=== PATIENT | female | born 1960 | race American Indian/Alaskan Native ===

== ENCOUNTER 2017-01-30 06:07 | Inpatient (IN) | payer MEDICARE ==
[2017-01-30 06:19] VITALS: BMI 27.1
--- NOTE | 2017-01-30 06:23 | CP.SDSHP ---
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 Pt NPO status was confirmed. All Pre-op testing and clearance was in the chart. Pt has exhausted all conservative treatment at this time and is opting for surgical intervention. Pt was explained procedure and post-operative course. All pt's questions were answered to satisfaction. No guarantees were made. Pt understands all risks, benefits and complications of procedure. Pt will follow-up with Dr. Romero Pt. Evaluated Today:Candidate for Anesthesia & Procedure: Yes - Date & Time Date: 01/30/17 Short Stay Discharge - Short Stay Discharge Admitting Diagnosis/Reason for Visit: TALONAVICULAR ARTHRODESIS LT FOOT Disposition: TRANS TO OBS Referrals: Krzysztof Mendes MD [Primary Care Provider] - Follow-up: Follow up with Dr. Romero at his office as outpatient Instructions: RICE Therapy (GEN), Acetaminophen/Codeine (By mouth), Cephalexin (By mouth) Additional Instructions (Diet, Activity): Non-weightbearing to Left foot Progress Note/Discharge Note with Instructions: Patient was evaluated post operatively and the patient will be admitted for 24 observational watch. Patient will be seen by Dr. Martín Romero DPM tomorrow morning.
--- NOTE | 2017-01-30 06:24 | CP.PCM.PN ---
Subjective - Date & Time of Evaluation Date of Evaluation: 01/30/17 Time of Evaluation: 06:00 - Subjective Subjective: 56 year old female patient with PMHx of DM and HTN was seen at bedside SDS this morning for scheduled surgery of Left foot Talonavicular joint arthrodesis with Dr. Martín Romero DPM. Patient states that she had pain to medial arch of the bilateral feet for more than 5 years, Left more than Right. Patient states that she does not remember experiencing any trauma to bilateral feet that might have caused the pain. She states that she can only walk very slow because of the pain which gets worse as she walks. Patient states that she has tried conservational treatments including orthotics and injections and now wishes for surgical intervention. Patient confirms NPO status since midnight yesterday and agrees with the surgical plan for fusion the TN joint of Left foot today with Dr. Romero Objective - Vital Signs/Intake and Output Vital Signs (last 24 hours): Temp Pulse Resp BP Pulse Ox 98.4 F 85 18 119/75 01/20/17 13:56 01/20/17 13:56 01/20/17 13:56 01/20/17 13:56 - Constitutional Appears: Well, Non-toxic, No Acute Distress - Extremities Exam Additional comments: Bilateral lower extremities exam DERM: No open wound is noted. No erythema is noted to bilateral feet. No sign of acute infection is noted. VASC: Palpable DP and PT noted bilaterally 1/4, MANAGER CCU less than 3 seconds noted to all digits bilaterally. NEURO: Protective sensation intact ORTHO including biomechanics exam: Biomechanics evaluation for JulianToño Vera S: 56 year old female patient presents with painful Left mid foot mostly at the level of Talonavicular joint and ankle for more than 5 years. Patient have tried conservative treatments including orthotic inserts which have failed to alleviate the persisting pain to left foot and ankle. The pain to left ankle is now worse than it has been in the past, limiting her walking ability to no more than 5 minutes. O: Pain on palpation to mid foot is noted with pain exacerbated upon weightbearing to Left foot. Limited ROM to Left ankle is noted with less than 15' in DF, accompanied by slight pain. Arch collapse is noted bilaterally upon weightbearing. RCSP 8 degrees everted to Left, 8 degrees to Right. No structural or functional Limb length discrepancy is noted upon examination. STJ ROM is adaquate with MPJ inverted to the rearfoot. Anterior cavus foot type is not present to Left foot. Hypermobile 1st ray is noted to Left foot. Gait evaluation reveals apropulsive gait with weak plantarflexion before swing phase of gait cycle. Excessive pronation is noted throughout midstance and propulsion, with the knees flexed throughout the gait cycles. Increased angle of gait from the normal value of 10' as well as increased base of gait. Enhanced arch collapse on forefoot loading is noted; Left more than right. Slight antalgic gait with shortened stance phase is noted to Left lower extremity. A: Painful Left foot TN joint arthritis is present. Functional pes planus without pain is also present to Left foot with arch collapse upon weightbearing.~ P: Possible conservative measures were discussed with the patient including ankle brace, orthotics and injections, which according to the patient, have failed to provide adequate pain relief to Left foot. Patient is present today for Surgical intervention for Left talonavicular joint fusion to eliminate pain upon ROM secondary to arthritis by Dr. Romero - Neurological Exam Neurological Exam: Alert, Awake, Oriented x3 - Psychiatric Exam Psychiatric exam: Normal Affect, Normal Mood - Skin Skin Exam: Normal Color Assessment and Plan - Assessment and Plan (Free Text) Assessment: 56 year old female patient presents with arthritis to Left Talonavicular joint Plan: Pt was seen and examined in SDS Pt NPO status was confirmed All Pre-op testing and clearance was in the chart Pt has exhausted all conservative treatment at this time and is opting for surgical intervention Pt was explained procedure and post-operative course All pt's questions were answered to satisfaction No guarantees were made Pt understands all risks, benefits and complications of procedure Pt will follow-up with Dr. Romero
[2017-01-30] MEDS ORDERED: ceFAZolin 1 GM in Sodium Chloride 0.9% 100 ML IVPB ONE (07:14)
[2017-01-30] MEDS ORDERED: Lactated Ringer's 1,000 ML IV ONE ×2 (07:15→10:02)
[2017-01-30] MEDS ORDERED: Bupivacaine 0.5% Inj(30mL) ONE (07:33)
[2017-01-30] MEDS ORDERED: Lidocaine 1% Inj (20ml) ONE (07:33)
[2017-01-30] MEDS ORDERED: ePHEDrine 50 mg/ml Inj ONE (07:46)
[2017-01-30] MEDS ORDERED: Propofol 10 mg/ml Inj (20 ML) ONE (07:46)
[2017-01-30] MEDS ORDERED: Midazolam 2 MG/2 ML VIAL ONE (07:46)
[2017-01-30] MEDS ORDERED: Rocuronium 10 mg/ml (5 ml) ONE (07:47)
[2017-01-30] MEDS ORDERED: Succinylcholine 200 mg/10 ml Inj IV ONE (07:47)
[2017-01-30] MEDS ORDERED: Neostigmine Methylsulfate 3mg/3ml Syringe IV ONE (07:48)
[2017-01-30] MEDS ORDERED: Phenylephrine 10 mg/ml Inj ONE (07:48)
[2017-01-30] MEDS ORDERED: Dexamethasone 4 mg/1 ml ONE (11:26)
[2017-01-30] MEDS ORDERED: Lactated Ringer's 1,000 ML IV SCH (12:00)
--- NOTE | 2017-01-30 12:07 | PCM.SURG1 ---
Surgeon's Initial Post Op Note - Surgeon's Notes Surgeon: Dr. Romero Product Grader: Dr. Haro Type of Anesthesia: General Endo, Local Anesthesia Administered By: Dr. Nayak Pre-Operative Diagnosis: Left foot painful osteoarthritis of Talonavicular joint with painful skin lesion Operative Findings: Materials: * 2-0, 3-0, 4-0 Vicryl. * synthes 4.0 x 30mm cannulated screw. * BME 18mm colt x2 Post-Operative Diagnosis: same Operation Performed: Left foot TNJ arthrodesis and excisional removel of skin lesion Specimen/Specimens Removed: None Estimated Blood Loss: EBL {In ML}: 20 Blood Products Given: N/A Drains Used: No Drains Post-Op Condition: Good Date of Surgery/Procedure: 01/30/17 Time of Surgery/Procedure: 08:00
[2017-01-30] MEDS ORDERED: Oxycodone/Acetaminophen 5/325 mg Tab PO PRN (12:10)
[2017-01-30] MEDS ORDERED: HYDROmorphone 0.5 mg/0.5 ml ISec IVP PRN (12:28)
[2017-01-30] MEDS ORDERED: Labetalol 5mg/ml (4ml) IVP PRN (12:30)
[2017-01-30] MEDS ORDERED: Labetalol 5 mg/ml Inj 20ML IVP ONE (12:40)
--- NOTE | 2017-01-30 12:48 | RAD ---
PROCEDURE: Left Foot Radiographs. HISTORY: left foot surgery COMPARISON: None. FINDINGS: BONES: Status post surgical fixation at talonavicular articulation. Surgical hardware appears intact. No acute fracture. Plantar calcaneal spur noted. Likely status post osteotomy distal aspect 5th proximal phalanx. This is unchanged from prior radiograph. JOINTS: Normal. SOFT TISSUES: Normal. OTHER FINDINGS: None. IMPRESSION: Surgical fixation at talonavicular articulation. Old osteotomy 5th proximal phalanx.
--- NOTE | 2017-01-30 14:43 | OP ---
PROCEDURE DATE: 01/30/2017 SURGEON: Martín Romero DPM BRAND STRATEGIST: John Haro DPM, PGY-3 CUFFING MACHINE OPERATOR: Dr. Shashi MD PREOPERATIVE DIAGNOSES: 1. Left Foot - Painful osteoarthritis of the talonavicular joint. 2. Left Foot - Painful skin lesion of unknown etiology. POSTOPERATIVE DIAGNOSES: 1. Left Foot - Painful osteoarthritis of the talonavicular joint. 2. Left Foot - Painful skin lesion of unknown etiology. NAME OF PROCEDURES: 1. Left Foot - Talonavicular joint arthrodesis. 2. Left Foot - Excision of soft tissue mass of unknown etiology. INDICATIONS: This is a 56-year-old female with the aforementioned diagnoses. The patient at this time has exhausted all of her conservative treatment options and she now opts and requests for surgical intervention. The patient signed the consent form after careful explanation of all the risks, benefits, complications, and alternatives to the surgical procedure. There were no guarantees that were made, given, nor implied. PREPARATION: The patient was brought into the operating room, placed on the operating table in a supine position. A well-padded pneumatic ankle tourniquet was placed on the patient's left ankle in the supramalleolar position. After induction of general anesthesia, the left foot and ankle were then prepped and draped in the usual sterile manner. A timeout was performed. An Esmarch bandage was utilized to exsanguinate the left foot and ankle. The pneumatic ankle tourniquet was then inflated to 250 mmHg and then the procedure began. PROCEDURE #1: Attention directed to the dorsal medial aspect of the patient's left foot, where an approximately 5 cm curvilinear incision was made overlying the medial aspect of the talonavicular joint. The incision extended from approximately the tip of the medial malleolus to the navicular-medial cuneiform joint. The incision was deepened through the subcutaneous tissues utilizing a combination of sharp and blunt dissection. Care was taken to identify and retract all vital neurovascular structures and cauterize all bleeders as necessary, including, but not limited to, the great saphenous vein and branches of the peroneal nerve. The incision was deepened down to the level of the talonavicular joint capsule, which once encountered, a fresh #15 blade was utilized to make a linear capsulotomy in parallel with the skin incision, overlying the medial aspect of the talonavicular joint. The periosteal and capsular structures were then carefully dissected free from their osseous attachments from the head of the talus and the base of the navicular. Next, in order to gain adequate exposure to the articular surfaces of the talonavicular joint, a GenerationOneermann distractor with two 0.062 inch K-wires was utilized to spread open and distract the talonavicular joint. After that was accomplished, a small laminar subway guard without sharp teeth was inserted into the talonavicular joint space as well and utilized to further distract the joint. Next, with the use of curettes and curved osteotomes, the articular surfaces and subchondral bone of the head of the talus and the base/posterior aspect of the navicular were resected in their entirety. All articular surfaces of the talonavicular joint were resected and removed from the surgical field. Next, the surgical site was then irrigated with a copious amount of normal sterile saline solution and the surgical field was now inspected and any remaining articular cartilage was resected as necessary. Next, utilizing a 1.5 mm drill bit, the subchondral plate of the head of the talus and the posterior aspect of the navicular were subchondrally drilled. Multiple perforations of the subchondral plate occurred on both the head of the talus and the posterior aspect of the navicular. After that was completed, the talonavicular joint was again irrigated with a copious amount of normal sterile saline. Next, utilizing a K-wire from the Synthes 4.0 cannulated cancellous screw set, the talonavicular joint was temporarily fixated. While fixating the talonavicular joint, special attention was paid to hold the rearfoot in neither varus nor valgus and to hold the forefoot in a neutral position. After the talonavicular joint was temporarily fixated, adequate positioning of the talonavicular joint surfaces was then confirmed with the use of intraoperative fluoroscopy. Next, an additional K-wire from the aforementioned screw set was now inserted further lateral and still parallel to the first K-wire. Again, temporary fixation was confirmed with the use of intraoperative fluoroscopy and adjusted as deemed necessary in order to gain adequate bony apposition. Next, following standard AO principles and techniques, a Synthes 4.0 mm x 30 mm cannulated cancellous screw was inserted from anterior to posterior across the resected joint surface with excellent compression noted. The first K-wire was then removed and set aside. Next, our attention was now directed to our more lateral K-wire where a Synthes 4.0 mm x 42 mm cannulated cancellous screw was then inserted again. It is noted that during insertion of the lateral most screw across the talonavicular joint, the screw head became stripped and the screw could no longer be advanced nor withdrawn with the use of a screwdriver. Next, the Synthes hardware removal set was now brought into the operative field and the 42 mm cannulated screw was successfully extracted without any breaking or stripping of the screw noted with a reverse cutting screw extractor. Next, the decision was made to now replace the 42 mm screw with a staple. Next, utilizing the BME staple measuring device, two 18 mm BME colt were appropriately applied, while following standard BME staple insertion protocol, successfully across the talonavicular joint. One staple was applied across the medial aspect of the joint and a second staple was applied across the dorsal aspect of the joint. It is of note that prior to staple application on the medial side of the joint, a sagittal bone saw was brought into the operative field and the hypertrophied portion of the navicular tuberosity was resected and passed from the operative field in order to allow for more adequate positioning of the staple and to ensure that it would be flush to bone. Next, after all hardware had been inserted and positioning had been confirmed with the use of intraoperative fluoroscopy, the surgical site was irrigated with a copious amount of normal sterile saline solution. The periosteal and capsular structures were then reapproximated with #2-0 Vicryl suture. The subcutaneous tissues were reapproximated with #3-0 Vicryl suture. The subcuticular tissue was reapproximated with 4-0 Vicryl suture and then the skin was reapproximated with #3-0 nylon suture in an interrupted horizontal mattress fashion. PROCEDURE #2. Next, our attention now directed to the plantar aspect of the patient's left foot, where an approximately 1 cm x 1 cm hard palpable lesion was noted at approximately the mid foot level of the patient's plantar foot. Next, utilizing a #15 blade and pickups, an elliptical incision was now performed surrounding the lesion of unknown etiology. The elliptical incision was approximately 3 cm in length and 1 cm in diameter. After the lesion was successfully excised, it was then passed off the operative field and sent as a pathologic specimen. Next, the plantar surgical site was now irrigated with a copious amount of normal sterile saline solution. The surgical site was then inspected for any residual aspects of the lesion and none were noted. Next, utilizing #3-0 nylon suture and in a simple interrupted fashion, the skin on the plantar aspect of the foot was now reapproximated. Next, the patient received a postoperative injection consisting of 20 mL of 0.5 % Marcaine plain in the form of local field block infiltration to the surgical areas. The patient further received an injection of 1 mL of Decadron, again to all surgical areas. Next, the foot was then cleansed and dried and Xeroform was then applied across the surgical sites. The surgical sites were now dressed with dry sterile dressings. The pneumatic ankle tourniquet was deflated and removed and the foot then continued to be dressed with Coban and an additional layer of dry sterile dressings, followed by a final layer of Coban. POSTOPERATIVE CONDITION: The patient tolerated the anesthesia and the procedure well and was escorted to the recovery room with her vital signs stable and neurovascular status intact to the left foot as noted by good cutaneous hyperemia to all 5 digits of the left foot. The patient will be nonweightbearing to the left lower extremity with the aid of a standard walker. The patient will be admitted to the hospital for 23-hour observations and will likely be discharged tomorrow. Upon discharge, the patient will follow up with Dr. Romero in his office next week. John Haro DPM Martín Romero DPM cc: [id number] TT: 01/30/2017 14:42:29 en MTDD
--- NOTE | 2017-01-30 14:49 | RAD ---
PROCEDURE: Intraoperative fluoroscopy HISTORY: LEFT FOOT COMPARISON: Not of a TECHNIQUE: Intraoperative fluoroscopy was provided. Total time of fluoroscopy is 33.1 seconds. FINDINGS: Thirteen fluoroscopic spot films are submitted demonstrating insertion of hardware fixing the anterior talus and navicular. Films are on file for review. IMPRESSION: Fluoroscopy provided.
[2017-01-30] MEDS ORDERED: Dextrose 50% SYRINGE Inj (50 ml) IV PRN (16:42)
[2017-01-30] MEDS ORDERED: Glucagon Recombinant 1 mg Inj IM PRN (16:42)
[2017-01-30] MEDS ORDERED: Pneumococcal 23-Valent Vaccine IM ONE (16:46)
--- NOTE | 2017-01-30 16:47 | CP.PCM.HP ---
History of Present Illness - History of Present Illness History of Present Illness: 56 year old female with a history of DM II and HTN. Status post Left foot TNJ arthrodesis and excisional removal of skin lesion. Post-Op Day#0. Complains of mild pain and surgical site and mild headache. No chest pain shortness of breath , palpitations, cough, sputum. No changes in vision. No new focal deficits. Afebrile. Present on Admission - Present on Admission Any Indicators Present on Admission: No Review of Systems - Review of Systems Review of Systems: As per HPI. Past Patient History - Past Medical History & Family History Past Medical History?: Yes - Past Social History Smoking Status: Heavy Smoker > 10 Cigarettes Daily - CARDIAC Hx Cardiac Disorders: Yes Hx Hypercholesterolemia: Yes Hx Hypertension: Yes - PULMONARY Hx Respiratory Disorders: Yes Hx Asthma: Yes - NEUROLOGICAL Hx Neurological Disorder: No - HEENT Hx HEENT Problems: No - RENAL Hx Chronic Kidney Disease: No - ENDOCRINE/METABOLIC Hx Endocrine Disorders: Yes Hx Diabetes Mellitus Type 1: Yes Hx Diabetes Mellitus Type 2: Yes Other/Comment: thyroid nodulesGOITER - HEMATOLOGICAL/ONCOLOGICAL Hx Blood Disorders: No Hx Blood Transfusions: No - INTEGUMENTARY Hx Dermatological Problems: No - MUSCULOSKELETAL/RHEUMATOLOGICAL Hx Musculoskeletal Disorders: Yes Hx Arthritis: Yes (KNEES) Hx Falls: No - GASTROINTESTINAL Hx Gastrointestinal Disorders: No - GENITOURINARY/GYNECOLOGICAL Hx Genitourinary Disorders: No - PSYCHIATRIC Hx Psychophysiologic Disorder: No - SURGICAL HISTORY Hx Surgeries: Yes Hx Hysterectomy: Yes (PARTIAL) Hx Musculoskeletal Surgery: Yes (RIGHT CARPAL TUNNEL RELEASE 09/20/14 & STEROID INJ. RIGHT THUMB&LONG FINGER) Hx Orthopedic Surgery: Yes (R shoulder rotator cuff, R foot sx) Other/Comment: thyroid bx; LEFT BREAST BX.; - ANESTHESIA Hx Anesthesia: Yes Hx Anesthesia Reactions: No Hx Malignant Hyperthermia: No Has any member of the family had a problem w/ anesthesia?: No Meds Allergies/Adverse Reactions: Allergies Allergy/AdvReac Type Severity Reaction Status Date / Time No Known Allergies Allergy Verified 01/30/17 06:19 Physical Exam - Head Exam Head Exam: ATRAUMATIC, NORMOCEPHALIC - Eye Exam Eye Exam: Normal appearance - ENT Exam ENT Exam: Mucous Membranes Dry - Respiratory Exam Respiratory Exam: NORMAL BREATHING PATTERN. absent: Rales, Rhonchi, Wheezes - Cardiovascular Exam Cardiovascular Exam: REGULAR RHYTHM, +S1, +S2 - GI/Abdominal Exam GI & Abdominal Exam: Soft. absent: Distended, Tenderness - Extremities Exam Extremities exam: Negative for: pedal edema Additional comments: Left LE CDI Ice pack on foot - Neurological Exam Neurological exam: Alert, CN II-XII Intact, Oriented x3 Results - Vital Signs Recent Vital Signs: Last Vital Signs Temp 98.7 F 01/30/17 15:59 Pulse 108 H 01/30/17 15:59 Resp 20 01/30/17 15:59 BP 158/75 H 01/30/17 15:59 Pulse Ox 96 01/30/17 15:59 - Labs Labs: Laboratory Results - last 24 hr 01/30/17 01/30/17 06:46 12:07 POC Glucose (mg/dL) 191 H 167 H Assessment & Plan - Assessment and Plan (Free Text) Assessment: 56 year old female with a history of HTN and DM II. Status post Left foot TNJ arthrodesis and excisional removal of skin lesion. Plan: Home medications verified via [facility], [place], [place] 1. Left foot TNJ arthrodesis and excisional removal of skin lesion POD#0 a. Podiatry on board b. Management of pain 2. HTN a. Lisinopril 10mg PO Daily 3. DM II, uncontrolled, Insulin dependent a. AARON espino AccuCheckjil torres. Hypoglycemia protocol 4. DVT Px Lovenox 40mg SC
[2017-01-30] MEDS: Insulin Regular 100 units/ml SC SCH ×2 (18:06→22:02)
[2017-01-30] MEDS: Enoxaparin 40 mg Syringe SC SCH (18:10)
[2017-01-30] MEDS: Oxycodone/Acetaminophen 5/325 mg Tab PO PRN (20:14)
[2017-01-31] MEDS: Insulin Regular 100 units/ml SC SCH ×4 (07:08→22:28)
[2017-01-31] MEDS: Enoxaparin 40 mg Syringe SC SCH (08:51)
[2017-01-31] MEDS: Oxycodone/Acetaminophen 5/325 mg Tab PO PRN ×3 (08:52→23:55)
--- NOTE | 2017-01-31 09:27 | CP.PCM.PN ---
Subjective - Date & Time of Evaluation Date of Evaluation: 01/31/17 Time of Evaluation: 09:00 - Subjective Subjective: 56 year old female patient with PMHx of DM and HTN, is POD#1 for left foot Talo- navicular joint arthrodesis. Pt was resting comfortably upon arrival. Evaluatd with attending, Dr. Martín Romero DPM present. Pt reports ost-operative pain is well controlled with pain medicines and reports no pain or breakthrough pain at this time. Pt is tolerating diet, and voiding freely. Pt denies any acute overnight events, denies recent n/v/f/c/cp/sob. Objective - Vital Signs/Intake and Output Vital Signs (last 24 hours): Temp Pulse Resp BP Pulse Ox 98.5 F 101 H 20 166/80 H 95 01/31/17 08:44 01/31/17 08:48 01/31/17 08:44 01/31/17 08:48 01/31/17 08:44 - Medications Medications: Current Medications Acetaminophen (Tylenol 325mg Tab) 650 mg PO Q4 PRN PRN Reason: Pain, Mild (1-3) Last Admin: 01/30/17 16:37 Dose: 650 mg Aspirin (Aspirin Chewable) 81 mg PO DAILY [facility] Last Admin: 01/31/17 08:47 Dose: 81 mg Dextrose (Glutose 15) 0 gm PO ONCE PRN; Protocol PRN Reason: Hypoglycemia Protocol Dextrose (Dextrose 50% Inj) 0 ml IV STAT PRN; Protocol PRN Reason: Hyglycemia Protocol Enoxaparin Sodium (Lovenox) 40 mg SC DAILY [facility] PRN Reason: Protocol Last Admin: 01/31/17 08:51 Dose: 40 mg Glucagon (Glucagen Diagnostic Kit) 0 mg IM STAT PRN; Protocol PRN Reason: Hypoglycemia Protocol Insulin Human Regular (Humulin R) 0 units SC ACCU-CHECK AD PRN Reason: Protocol Last Admin: 01/31/17 07:08 Dose: Not Given Lisinopril (Zestril) 10 mg PO DAILY [facility] Last Admin: 01/31/17 08:48 Dose: 10 mg Oxycodone/Acetaminophen (Percocet 5/325 Mg Tab) 1 tab PO Q4 PRN PRN Reason: Pain, moderate (4-7) Stop: 02/02/17 12:11 Last Admin: 01/31/17 08:52 Dose: 1 tab Oxycodone/Acetaminophen (Percocet 5/325 Mg Tab) 2 tab PO Q4 PRN PRN Reason: Pain, severe (8-10) Stop: 02/02/17 12:11 Last Admin: 01/30/17 20:14 Dose: 2 tab - Constitutional Appears: Well, Non-toxic, No Acute Distress - Extremities Exam Additional comments: Left lower extremity focused. Dressings clean, dry, and intact, absent strikethrough. Neuro-vascular status intact to level of digits. Pt able to flex and extend at knee joint freely. - Neurological Exam Neurological Exam: Alert, Awake, Oriented x3 - Psychiatric Exam Psychiatric exam: Normal Affect, Normal Mood Assessment and Plan - Assessment and Plan (Free Text) Assessment: 56 year old female is 1 day s/p left foot talo-navicular arthrodesis. Plan: Pt evaluated and treated with attending, Dr. Romero present. Chart, labs, and vitals reviewed. -Pt to start physical therapy, discussed with physical therapist pt's limited ability to complete physical therapy goals in a timely manner. Due to patient's living alone and, need for additional physical therapy, TCU is recommended for patient. -Patient to remain non-weightbearing to left lower extremity. PT to continue to work with patient to improve mobility. -Pt to started on post-operative 7 day prophylactic course of Keflex 500 TID. Podiatry will continue to follow patient while inhouse.
--- NOTE | 2017-01-31 12:37 | CP.PCM.PN ---
Subjective - Date & Time of Evaluation Date of Evaluation: 01/31/17 Time of Evaluation: 08:40 - Subjective Subjective: POD#1 Improved ambulation efforts, though remains limited. Pain controlled on PRN analgesia. Tolerating PO intake. Afebrile. No nausea, vomiting, diarrhea. No shortness of breath, chest pain, palpitations. Objective - Vital Signs/Intake and Output Vital Signs (last 24 hours): Temp Pulse Resp BP Pulse Ox 98.5 F 101 H 20 166/80 H 95 01/31/17 08:44 01/31/17 08:48 01/31/17 08:44 01/31/17 08:48 01/31/17 08:44 - Medications Medications: Current Medications Acetaminophen (Tylenol 325mg Tab) 650 mg PO Q4 PRN PRN Reason: Pain, Mild (1-3) Last Admin: 01/30/17 16:37 Dose: 650 mg Aspirin (Aspirin Chewable) 81 mg PO DAILY ON LICENSE OF [facility] Last Admin: 01/31/17 08:47 Dose: 81 mg Dextrose (Glutose 15) 0 gm PO ONCE PRN; Protocol PRN Reason: Hypoglycemia Protocol Dextrose (Dextrose 50% Inj) 0 ml IV STAT PRN; Protocol PRN Reason: Hyglycemia Protocol Enoxaparin Sodium (Lovenox) 40 mg SC DAILY ON LICENSE OF [facility] PRN Reason: Protocol Last Admin: 01/31/17 08:51 Dose: 40 mg Glucagon (Glucagen Diagnostic Kit) 0 mg IM STAT PRN; Protocol PRN Reason: Hypoglycemia Protocol Insulin Human Regular (Humulin R) 0 units SC ACCU-CHECK ON LICENSE OF [facility] PRN Reason: Protocol Last Admin: 01/31/17 12:02 Dose: 3 units Insulin Lispro Protam/Lispro Human (Humalog Mix 75/25) 15 units SC BID ON LICENSE OF [facility] Lisinopril (Zestril) 10 mg PO DAILY ON LICENSE OF [facility] Last Admin: 01/31/17 08:48 Dose: 10 mg Oxycodone/Acetaminophen (Percocet 5/325 Mg Tab) 1 tab PO Q4 PRN PRN Reason: Pain, moderate (4-7) Stop: 02/02/17 12:11 Oxycodone/Acetaminophen (Percocet 5/325 Mg Tab) 2 tab PO Q4 PRN PRN Reason: Pain, severe (8-10) Stop: 02/02/17 12:11 Last Admin: 01/31/17 08:52 Dose: 2 tab - Head Exam Head Exam: ATRAUMATIC, NORMOCEPHALIC - Eye Exam Eye Exam: EOMI, Normal appearance - Respiratory Exam Respiratory Exam: absent: Rales, Rhonchi, Wheezes - Cardiovascular Exam Cardiovascular Exam: REGULAR RHYTHM, +S1, +S2 - GI/Abdominal Exam GI & Abdominal Exam: Soft. absent: Tenderness - Extremities Exam Additional comments: Right LE CDI Motorsensorium grossly WNL - Neurological Exam Neurological Exam: Alert, Awake Assessment and Plan - Assessment and Plan (Free Text) Plan: 1. Left foot TNJ arthrodesis and excisional removal of skin lesion POD#1 a. Podiatry on board b. Management of pain c. TCU recommended by PT d. Continue PT 2. HTN a. Lisinopril 10mg PO Daily 3. DM II, uncontrolled, Insulin dependent a. AARON espino AccuCheckjil c. Hypoglycemia protocol d. Olinda Insulin added 75/25 15u BID 4. DVT Px Lovenox 40mg SC
[2017-01-31] MEDS: Insulin Lispro Mix 75/25 100 units/ml (HumaLog) 10ml SC SCH (16:30)
--- NOTE | 2017-01-31 23:45 | CP.PCM.PN ---
Subjective - Date & Time of Evaluation Date of Evaluation: 01/31/17 Time of Evaluation: 09:00 - Subjective Subjective: Pt.seen s/p t-n fusion left . Difficulty wiyh NWB staus and PT states goals not met for safely discharging .Pt lives alone with no help . TCU placement recommended. Objective - Vital Signs/Intake and Output Vital Signs (last 24 hours): Temp Pulse Resp BP Pulse Ox 98.2 F 90 20 116/73 96 01/31/17 20:10 01/31/17 20:10 01/31/17 20:10 01/31/17 20:10 01/31/17 20:10 - Medications Medications: Current Medications Acetaminophen (Tylenol 325mg Tab) 650 mg PO Q4 PRN PRN Reason: Pain, Mild (1-3) Last Admin: 01/30/17 16:37 Dose: 650 mg Aspirin (Aspirin Chewable) 81 mg PO DAILY [facility] Last Admin: 01/31/17 08:47 Dose: 81 mg Cephalexin Monohydrate (Keflex) 500 mg PO TID [facility] Stop: 02/07/17 17:01 Last Admin: 01/31/17 16:29 Dose: 500 mg Dextrose (Glutose 15) 0 gm PO ONCE PRN; Protocol PRN Reason: Hypoglycemia Protocol Dextrose (Dextrose 50% Inj) 0 ml IV STAT PRN; Protocol PRN Reason: Hyglycemia Protocol Enoxaparin Sodium (Lovenox) 40 mg SC DAILY [facility] PRN Reason: Protocol Last Admin: 01/31/17 08:51 Dose: 40 mg Glucagon (Glucagen Diagnostic Kit) 0 mg IM STAT PRN; Protocol PRN Reason: Hypoglycemia Protocol Insulin Human Regular (Humulin R) 0 units SC ACCU-CHECK [facility] PRN Reason: Protocol Last Admin: 01/31/17 22:28 Dose: Not Given Insulin Lispro Protam/Lispro Human (Humalog Mix 75/25) 15 units SC BID [facility] Last Admin: 01/31/17 16:30 Dose: 15 units Lisinopril (Zestril) 10 mg PO DAILY [facility] Last Admin: 01/31/17 08:48 Dose: 10 mg Oxycodone/Acetaminophen (Percocet 5/325 Mg Tab) 1 tab PO Q4 PRN PRN Reason: Pain, moderate (4-7) Stop: 03/20/17 12:11 Oxycodone/Acetaminophen (Percocet 5/325 Mg Tab) 2 tab PO Q4 PRN PRN Reason: Pain, severe (8-10) Stop: 02/02/17 12:11 Last Admin: 01/31/17 16:13 Dose: 2 tab
[2017-02-01] MEDS: Insulin Regular 100 units/ml SC SCH ×4 (07:09→23:00)
[2017-02-01] MEDS: Oxycodone/Acetaminophen 5/325 mg Tab PO PRN ×2 (08:10→20:20)
[2017-02-01] MEDS: Enoxaparin 40 mg Syringe SC SCH (08:12)
[2017-02-01] MEDS: Insulin Lispro Mix 75/25 100 units/ml (HumaLog) 10ml SC SCH ×3 (08:13→16:01)
--- NOTE | 2017-02-01 08:41 | CP.PCM.PN ---
Subjective - Date & Time of Evaluation Date of Evaluation: 02/01/17 Time of Evaluation: 07:45 - Subjective Subjective: POD #2 - PT was seen resting in bed with left foot elevated about to eat breakfast. She states she is able to transfer to the chair. Tolerating PO intake. Denies N/ V/D. No SOB, chest pain palpitations. -As per PT will need to transfer to TCU Objective - Vital Signs/Intake and Output Vital Signs (last 24 hours): Temp Pulse Resp BP Pulse Ox 99.0 F 102 H 20 95/54 L 98 02/01/17 08:17 02/01/17 08:17 02/01/17 08:17 02/01/17 08:17 02/01/17 08:17 - Medications Medications: Current Medications Acetaminophen (Tylenol 325mg Tab) 650 mg PO Q4 PRN PRN Reason: Pain, Mild (1-3) Last Admin: 01/30/17 16:37 Dose: 650 mg Aspirin (Aspirin Chewable) 81 mg PO DAILY [facility] Last Admin: 02/01/17 08:11 Dose: 81 mg Cephalexin Monohydrate (Keflex) 500 mg PO TID [facility] Stop: 02/07/17 17:01 Last Admin: 02/01/17 08:11 Dose: 500 mg Dextrose (Glutose 15) 0 gm PO ONCE PRN; Protocol PRN Reason: Hypoglycemia Protocol Dextrose (Dextrose 50% Inj) 0 ml IV STAT PRN; Protocol PRN Reason: Hyglycemia Protocol Enoxaparin Sodium (Lovenox) 40 mg SC DAILY [facility] PRN Reason: Protocol Last Admin: 02/01/17 08:12 Dose: 40 mg Glucagon (Glucagen Diagnostic Kit) 0 mg IM STAT PRN; Protocol PRN Reason: Hypoglycemia Protocol Insulin Human Regular (Humulin R) 0 units SC ACCU-CHECK [facility] PRN Reason: Protocol Last Admin: 02/01/17 07:09 Dose: Not Given Insulin Lispro Protam/Lispro Human (Humalog Mix 75/25) 15 units SC BID [facility] Last Admin: 02/01/17 08:21 Dose: Not Given Lisinopril (Zestril) 10 mg PO DAILY [facility] Last Admin: 02/01/17 08:11 Dose: 10 mg Oxycodone/Acetaminophen (Percocet 5/325 Mg Tab) 1 tab PO Q4 PRN PRN Reason: Pain, moderate (4-7) Stop: 02/02/17 12:11 Oxycodone/Acetaminophen (Percocet 5/325 Mg Tab) 2 tab PO Q4 PRN PRN Reason: Pain, severe (8-10) Stop: 02/02/17 12:11 Last Admin: 02/01/17 08:10 Dose: 2 tab - Constitutional Appears: No Acute Distress - Head Exam Head Exam: NORMAL INSPECTION - Eye Exam Eye Exam: Normal appearance Pupil Exam: NORMAL ACCOMODATION - ENT Exam ENT Exam: Mucous Membranes Moist - Neck Exam Neck Exam: Full ROM, Normal Inspection - Respiratory Exam Respiratory Exam: Clear to Ausculation Bilateral, NORMAL BREATHING PATTERN - Cardiovascular Exam Cardiovascular Exam: REGULAR RHYTHM, +S1, +S2 - GI/Abdominal Exam GI & Abdominal Exam: Soft, Normal Bowel Sounds - Extremities Exam Additional comments: Left foot bandage c/d/i . Tenderness on palpation. - Neurological Exam Neurological Exam: Alert, Awake, Normal Gait Assessment and Plan - Assessment and Plan (Free Text) Assessment: 1. Left foot TNJ arthrodesis and excisional removal of skin lesion POD#2 a. Podiatry on board b. Management of pain c. TCU recommended by PT d. Keflex 500 mg PO TID e. Continue PT 2. HTN a. Lisinopril 10mg PO Daily 3. DM II, uncontrolled, Insulin dependent a. AARON espino AccuChecks c. Hypoglycemia protocol d. Olinda Insulin added 75/25 15u BID 4. DVT Px Lovenox 40mg SC
[2017-02-02 02:19] VITALS: O2SAT 98
[2017-02-02] MEDS: Insulin Regular 100 units/ml SC SCH ×2 (07:42→13:09)
[2017-02-02 08:20] VITALS: PULSE 82; RESP 18; TEMP 98.6
[2017-02-02] MEDS: Insulin Lispro Mix 75/25 100 units/ml (HumaLog) 10ml SC SCH (08:30)
[2017-02-02 08:31] VITALS: BP 129/79
[2017-02-02] MEDS: Enoxaparin 40 mg Syringe SC SCH (08:31)
[2017-02-02] MEDS: Oxycodone/Acetaminophen 5/325 mg Tab PO PRN (08:39)
--- NOTE | 2017-02-02 12:45 | CP.PCM.PN ---
Subjective - Date & Time of Evaluation Date of Evaluation: 02/02/17 Time of Evaluation: 12:39 - Subjective Subjective: 56 year old female was seen resting at bedside 3 days s/p left foot TNJ fusion. Patient admits to being able to transfer from her bed to her chair and to the portable toilet. She admits to intermittent pain. Denies n/v/f/c/sob/cp. As per PT, patient will need to transfer to a [facility] or TCU. Objective - Vital Signs/Intake and Output Vital Signs (last 24 hours): Temp Pulse Resp BP Pulse Ox 98.6 F 82 18 129/79 98 02/02/17 08:20 02/02/17 08:30 02/02/17 08:20 02/02/17 08:30 02/02/17 08:20 - Medications Medications: Current Medications Acetaminophen (Tylenol 325mg Tab) 650 mg PO Q4 PRN PRN Reason: Pain, Mild (1-3) Last Admin: 01/30/17 16:37 Dose: 650 mg Aspirin (Aspirin Chewable) 81 mg PO DAILY [facility] Last Admin: 02/02/17 08:30 Dose: 81 mg Cephalexin Monohydrate (Keflex) 500 mg PO TID [facility] Stop: 02/07/17 17:01 Last Admin: 02/02/17 08:30 Dose: 500 mg Dextrose (Glutose 15) 0 gm PO ONCE PRN; Protocol PRN Reason: Hypoglycemia Protocol Dextrose (Dextrose 50% Inj) 0 ml IV STAT PRN; Protocol PRN Reason: Hyglycemia Protocol Enoxaparin Sodium (Lovenox) 40 mg SC DAILY [facility] PRN Reason: Protocol Last Admin: 02/02/17 08:31 Dose: 40 mg Glucagon (Glucagen Diagnostic Kit) 0 mg IM STAT PRN; Protocol PRN Reason: Hypoglycemia Protocol Insulin Human Regular (Humulin R) 0 units SC ACCU-CHECK [facility] PRN Reason: Protocol Last Admin: 02/02/17 07:42 Dose: 3 units Insulin Lispro Protam/Lispro Human (Humalog Mix 75/25) 15 units SC BID [facility] Last Admin: 02/02/17 08:30 Dose: Not Given Lisinopril (Zestril) 10 mg PO DAILY [facility] Last Admin: 02/02/17 08:30 Dose: 10 mg - Constitutional Appears: Well, Non-toxic, No Acute Distress - Head Exam Head Exam: ATRAUMATIC - Eye Exam Eye Exam: Normal appearance - Neck Exam Neck Exam: Full ROM - Respiratory Exam Respiratory Exam: NORMAL BREATHING PATTERN. absent: Rales, Rhonchi, Wheezes - Cardiovascular Exam Cardiovascular Exam: REGULAR RHYTHM, +S1, +S2 - GI/Abdominal Exam GI & Abdominal Exam: Soft, Normal Bowel Sounds. absent: Tenderness - Extremities Exam Additional comments: dressing intact to left foot, mild tenderness on palpation to left foot - Back Exam Back Exam: NORMAL INSPECTION - Neurological Exam Neurological Exam: Alert, Awake, Oriented x3 - Psychiatric Exam Psychiatric exam: Normal Affect, Normal Mood - Skin Skin Exam: Dry, Normal Color, Warm Assessment and Plan - Assessment and Plan (Free Text) Assessment: 56 year old female with PMH of HTN, DM II, 3 days s/p left foot TNJ fusions and excisional removal of skin lesions Plan: 1. 3 s/p left foot TNJ fusion and excisional removal of skin lesions -Podiatry on consult -Percocet 5/325 mg PRN pain -Rehab recommended by PT -Keflex 500 mg PO TID for 10 days -Continue physical therapy 2. HTN -Lisinopril 10mg PO daily 3. DM II, uncontrolled, insulin dependent -AARON -Xiomy -hypoglycemia protocol -Olinda Insulin 75/25 15 u BID 4. DVT ppx -Lovenox 40mg SC daily
--- NOTE | 2017-02-02 13:51 | CP.PCM.PN ---
Subjective - Date & Time of Evaluation Date of Evaluation: 02/02/17 Time of Evaluation: 13:00 - Subjective Subjective: 56 year old female patient with PMHx of DM and HTN, is POD#3 for left foot Talo- navicular joint arthrodesis. Patient is resting comfortably in bed with no report of acute overnight distress. Dressing to Left lower extremity remains clean dry and intact. Patient complains of mild paint to Left foot. She is keeping her legs elevated in bed. Pt is tolerating diet, and voiding freely. Patient denies recent n/v/f/c/cp/sob. Objective - Vital Signs/Intake and Output Vital Signs (last 24 hours): Temp Pulse Resp BP Pulse Ox 98.6 F 82 18 129/79 98 02/02/17 08:20 02/02/17 08:30 02/02/17 08:20 02/02/17 08:30 02/02/17 08:20 - Medications Medications: Current Medications Acetaminophen (Tylenol 325mg Tab) 650 mg PO Q4 PRN PRN Reason: Pain, Mild (1-3) Last Admin: 01/30/17 16:37 Dose: 650 mg Aspirin (Aspirin Chewable) 81 mg PO DAILY [facility] Last Admin: 02/02/17 08:30 Dose: 81 mg Cephalexin Monohydrate (Keflex) 500 mg PO TID [facility] Stop: 02/07/17 17:01 Last Admin: 02/02/17 13:12 Dose: 500 mg Dextrose (Glutose 15) 0 gm PO ONCE PRN; Protocol PRN Reason: Hypoglycemia Protocol Dextrose (Dextrose 50% Inj) 0 ml IV STAT PRN; Protocol PRN Reason: Hyglycemia Protocol Enoxaparin Sodium (Lovenox) 40 mg SC DAILY [facility] PRN Reason: Protocol Last Admin: 02/02/17 08:31 Dose: 40 mg Glucagon (Glucagen Diagnostic Kit) 0 mg IM STAT PRN; Protocol PRN Reason: Hypoglycemia Protocol Insulin Human Regular (Humulin R) 0 units SC ACCU-CHECK [facility] PRN Reason: Protocol Last Admin: 02/02/17 13:09 Dose: 6 units Insulin Lispro Protam/Lispro Human (Humalog Mix 75/25) 15 units SC BID [facility] Last Admin: 02/02/17 08:30 Dose: Not Given Lisinopril (Zestril) 10 mg PO DAILY [facility] Last Admin: 02/02/17 08:30 Dose: 10 mg - Constitutional Appears: Well, Non-toxic - Extremities Exam Additional comments: Left lower extremity focused. Dressings clean, dry, and intact, absent strikethrough. Neuro-vascular status intact to level of digits. Pt able to flex and extend at knee joint freely. - Neurological Exam Neurological Exam: Alert, Awake, Oriented x3 - Psychiatric Exam Psychiatric exam: Normal Affect, Normal Mood - Skin Skin Exam: Normal Color, Warm Assessment and Plan - Assessment and Plan (Free Text) Assessment: 56 year old female is 3 days s/p left foot talo-navicular arthrodesis. Plan: Pt evaluated and treated with attending, Dr. Romero Chart, labs, and vitals reviewed. -Due to patient's living alone and, need for additional physical therapy, TCU is recommended for patient. -Patient to remain non-weightbearing to left lower extremity for at least [address] Romero DPM. -PT to continue to work with patient to improve mobility. -Continue Keflex 500 TID. -Continue Lovenox 40mg -Possible discharge to TCU or [facility] for continued physical therapy training Podiatry will continue to follow patient while inhouse
--- NOTE | 2017-02-02 14:55 | CP.PCM.DIS ---
Provider - Provider Date of Admission: 01/30/17 10:28 Attending physician: Kajal Degroot MD Primary care physician: Krzysztof Mendes MD Consults: Dr. Romero-Podiatry Time Spent in preparation of Discharge (in minutes): 45 Hospital Course - Lab Results Lab Results: Most Recent Lab Values POC Glucose (mg/dL) 229 mg/dL (65-110) H 02/02/17 05:52 - Hospital Course Hospital Course: 56 year old female with PMH of DM II, HTN was admitted to the hospital s/p left foot TNJ fusion and excisional removal of skin lesions on 01/30/17. Podiatry was consulted for post-operative management. Patients pain was controlled with medication and dressing kept intact to left foot. Patient participated in physical therapy. She is discharged to a subacute rehab for further physical therapy. Discharge Exam - Head Exam Head Exam: ATRAUMATIC Discharge Plan - Follow Up Plan Condition: GOOD Disposition: REHAB FACILITY/REHAB UNIT Instructions: Cephalexin (By mouth), Acetaminophen/Codeine (By mouth), RICE Therapy (GEN) Additional Instructions: Patient to be Non-weight bearing to Left foot for 6 weeks Patient to follow up with Dr. Romero in office next week Patient to take percocet Q4-6H prn pain (20 tabs dispensed) Patient to take keflex 500 mg TID for 10 days Patient to continue home medications Aspirin 81 mg PO daily Lisinopril 10 mg PO daily Fluticasone/Vilanterol 1 mcg INH Empagliflozin 25 mg PO daily Simvastatin 40 mg PO daily Novolog mix 70/30 15 units SC BID Referrals: Krzysztof Mendes MD [Primary Care Provider] - Martín Romero DPM [[facility]] -
== END 2017-02-02 17:59 | DRG 465 ==
LOC: H.OPSURG 06:07 → H.MEDSURG1 10:28
PROVIDERS: ADMIT Family Medicine Geriatric Medicine; ATTEND Family Medicine Geriatric Medicine
PROC: 3E0234Z Introduction of Serum, Toxoid and Vaccine into Muscle, Percutaneous Approach (ICD-10-PCS; 2017-01-30)
PROC: 0HBNXZZ Excision of Left Foot Skin, External Approach (ICD-10-PCS; 2017-01-30)
PROC: 0SGG04Z Fusion of Left Ankle Joint with Internal Fixation Device, Open Approach (ICD-10-PCS; principal; 2017-01-30 07:45)
DX: M19.072 Primary osteoarthritis, left ankle and foot (principal); E11.65 Type 2 diabetes mellitus with hyperglycemia; I10 Essential (primary) hypertension; M21.42 Flat foot [pes planus] (acquired), left foot; Z23 Encounter for immunization; F17.210 Nicotine dependence, cigarettes, uncomplicated; L98.9 Disorder of the skin and subcutaneous tissue, unspecified; Z79.4 Long term (current) use of insulin